=== PATIENT | female | born 1940 | race Caucasian/White ===

== ENCOUNTER 2017-09-21 09:43 | Outpatient (CLI) | payer OTHER | END 2017-09-21 13:36 | disposition home or self-care (01) | LOC: MRI 09:43 | DX: M25.512 Pain in left shoulder (principal) | CPT/HCPCS: 73221 ==

== ENCOUNTER 2017-10-14 10:20 | Outpatient (CLI) | payer OTHER | END 2017-10-14 14:03 | disposition home or self-care (01) | LOC: RAD 10:20 → MRI 10:20 → RAD 14:03 | DX: M47.812 Spondylosis without myelopathy or radiculopathy, cervical region (principal) ==

== ENCOUNTER 2017-10-14 10:28 | Outpatient (CLI) | payer OTHER | END 2017-10-14 14:04 | disposition home or self-care (01) | LOC: MRI 10:28 | DX: M25.552 Pain in left hip (principal) | CPT/HCPCS: 73721 ==

== ENCOUNTER 2017-10-14 12:20 | Outpatient (CLI) | payer OTHER | END 2017-10-14 13:00 | disposition home or self-care (01) | LOC: NUCLEAR 12:20 | DX: I82.403 Acute embolism and thrombosis of unspecified deep veins of lower extremity, bilateral (principal) ==

== ENCOUNTER 2017-12-13 13:03 | Outpatient (CLI) | payer OTHER | END 2017-12-13 15:00 | disposition home or self-care (01) | LOC: SONOGRAMA 13:03 → RAD 13:03 | DX: M75.51 Bursitis of right shoulder (principal); M75.52 Bursitis of left shoulder; M75.02 Adhesive capsulitis of left shoulder; M24.612 Ankylosis, left shoulder; M19.012 Primary osteoarthritis, left shoulder ==